=== PATIENT | male | born 2000 | race Caucasian/White ===

== ENCOUNTER 2024-11-03 23:12 | Emergency (ER) | payer SELFPAY ==
[~2024-11-03] VITALS: Ht 180.3 cm; Wt 61.2 kg
[2024-11-04] MEDS ORDERED: LIDOCAINE HCL/MPF 1% 30 ML VIAL IJ ONE (01:29)
[2024-11-04] MEDS ORDERED: TDAP [DIPH/PERTUSSIS/TET] 0.5 ML VIAL IM ONE (01:29)
[2024-11-04] MEDS: TDAP [DIPH/PERTUSSIS/TET] 0.5 ML VIAL IM ONE (01:33)
[2024-11-04] MEDS: LIDOCAINE /MPF 1% VIAL 5 ML VIAL IJ ONE (01:52)
[2024-11-04 02:51] VITALS: BP 122/80; TEMP 98.3; O2SAT 98
== END 2024-11-04 02:51 | disposition home or self-care (01) ==
LOC: ER 23:15
DX: S61.412A Laceration without foreign body of left hand, initial encounter (principal); W25.XXXA Contact with sharp glass, initial encounter; Y93.89 Activity, other specified; Y92.89 Other specified places as the place of occurrence of the external cause; Y99.8 Other external cause status
CPT/HCPCS: 12001; 73130; 99283; A6403; J3490; 90715